=== PATIENT | female | born 1985 | race Hispanic/Latino ===

== ENCOUNTER 2024-12-19 11:52 | Emergency (ER) | payer MEDICAID, SELFPAY ==
[2024-12-19 11:53] VITALS: BP 132/101; PULSE 85; RESP 16; TEMP 36.8; O2SAT 100; BMI 27.5
--- NOTE | 2024-12-19 12:04 | EX.ED.DYSGE1 ---
HPI <BRENDA Lara - Last Filed: 12/19/24 12:41> History of Present Illness Chief Complaint: Foreign Body Narrative Narrative: 39-year-old female put a tampon in last night and forgot it was in and then had sexual intercourse and this morning was unable to remove it. She has no abdominal or pelvic discomfort or discharge. PFSH <BRENDA Lara - Last Filed: 12/19/24 12:41> PFSH Medical History no medical history Allergy/AdvReac Type Severity Reaction Status Date / Time No Known Allergies Allergy Verified 12/19/24 11:53 Family History no significant family his Surgical History no surgical history Social History Smoking Status: Never smoker ROS <BRENDA Lara - Last Filed: 12/19/24 12:41> ROS ED ROS Narrative Constitutional: Negative for fever, chills, malaise. GI: Negative for abdominal pain, nausea, vomiting : Negative for dysuria. EXAM <BRENDA Lara - Last Filed: 12/19/24 12:41> Physical Exam Narrative Exam Narrative: CONST: Patient sitting in no acute distress. EYES: Normal inspection. NECK: Normal inspection. RESP: No respiratory distress, CTAB. CVS: Regular rate and rhythm, no murmur, no gallop. : Normal external genitalia, visible tampon in the vaginal vault was removed, no sign of other irritation or discharge. SKIN: Color normal, no rash, warm, dry, intact. EXTREMITIES: Normal appearance, no pedal edema. NEURO: Alert and answering questions appropriately. PSYCH: Normal affect. Const Vital Signs: 12/19/24 11:53 12/19/24 12:31 12/19/24 12:38 Temperature 98.3 F 98.3 F Temperature Source Oral Pulse Rate 85 85 Respiratory Rate 16 16 Respiratory Effort Normal Respiratory Pattern Normal Blood Pressure 132/101 H 132/101 H Blood Pressure Mean 111 111 Pulse Ox 100 100 Oxygen Delivery Method Room Air <Dr. 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 She has no pain or discomfort but is unable to remove it. I performed a pelvic exam and used ring forceps to remove the tampon successfully. She is otherwise asymptomatic and does not require antibiotics or further treatment. I provided an TRANSPORT DRIVER referral if needed and she was discharged in stable condition. <Dr. 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 She has no pain or discomfort but is unable to remove it. I performed a pelvic exam and used ring forceps to remove the tampon successfully. She is otherwise asymptomatic and does not require antibiotics or further treatment. I provided an TRANSPORT DRIVER referral if needed and she was discharged in stable condition. I have personally performed a face to face assessment of the patient and have reviewed the DEMETRIA Note. I performed a substantive portion of the visit including all aspects of the following. My dow findings include: History is patient is a 39-year-old female who inserted a tampon last night but was unable to get it out. She came in for removal. Denies any other complaints. No fever or chills reported. data integrity analyst used for all interactions with patient. On exam patient is well-appearing. She is normal vital signs. Abdomen soft and nontender. On speculum exam there is tampon that is removed using ring forceps by Magda GUTIERREZ. Patient tolerated this well. Given that is only been in for less than 24 hours I do not think she needs antibiotic prophylaxis. Low suspicion for PID or toxic shock syndrome. Given outpatient gynecology follow-up. Given return precautions Other additions or changes: [None] Discharge Plan Triage Chief Complaint: Foreign Body ED Midlevel Provider: Magda Alexander ED Provider: Adamaris Miranda Dx/Rx/DC Orders Clinical Impression: Foreign body in vagina Instructions: ED Foreign Body Vaginal Adult Primary Care Provider: Care Physician,No Primary Referrals: Zehra Hayward DO [Med Staff - Active Staff] - NOT,DEFINED [Non-Staff] - Activity Restrictions/Additional Instructions: The tampon was removed. Follow-up with TRANSPORT DRIVER as needed. Print Language: Panamanian Disposition Disposition: Home, Self Care Discharge Date/Time: 12/19/24 12:59
[2024-12-19 12:38] VITALS: BP 132/101; PULSE 85; RESP 16; TEMP 36.8; O2SAT 100
== END 2024-12-19 12:59 | disposition home or self-care (01) ==
LOC: ED 12:50
PROVIDERS: Emergency Provider Emergency Medicine; Visit Provider Emergency Medicine
DX: T19.2XXA Foreign body in vulva and vagina, initial encounter (principal); W44.8XXA Other foreign body entering into or through a natural orifice, initial encounter
CPT/HCPCS: 99282

== ENCOUNTER 2025-03-19 08:24 | Emergency (ER) | payer MEDICAID, SELFPAY ==
[2025-03-19 08:24] VITALS: BP 96/53; PULSE 67; RESP 16; TEMP 37; O2SAT 100; BMI 28.3
[2025-03-19 08:27] VITALS: BP 106/58; PULSE 70; RESP 12; TEMP 37; O2SAT 98
--- NOTE | 2025-03-19 08:29 | EX.ED.VIS.UR ---
HPI HPI - URI History of Present Illness Chief Complaint: Sore Throat Narrative Narrative: Patient is a 39-year-old female presenting to the emergency department for a cough and sore throat for the past few days. Patient has no significant past medical history. Patient states that her daughter has similar symptoms. Repair Electric Motor Assembler was used for the interaction. She endorses a subjective fever with no chills. Endorses rhinorrhea and congestion. Patient also endorses redness to her left eye. She endorses watery drainage, no purulent drainage. No itching. No visual changes. No eye pain. Denies chest pain, shortness of breath, abdominal pain, nausea, vomiting, diarrhea. Denies any dysuria or hematuria. Denies headache. She has been taking Tylenol and Motrin for symptomatic control. Last took last evening. Her reason for the visit was that she wants to make sure I can go to work on Saturday. ROS ROS ED ROS Narrative see HPI PFSH PFSH Medical History no medical history Allergy/AdvReac Type Severity Reaction Status Date / Time No Known Allergies Allergy Verified 03/19/25 08:24 Family History no significant family his Social History Smoking Status: Never smoker EXAM Physical Exam Narrative Exam Narrative: Vital signs: Reviewed General: Alert and orientedx3. No acute distress HEENT: Head is normocephalic and atraumatic, sinuses nontender, pupils equal round and reactive. Mild conjunctival injection to the left eye. Watery drainage. No purulent drainage. Nares are patent. Oropharynx with mild posterior erythema. No exudate. No asymmetric swelling. Uvula midline. Neck: Supple without lymphadenopathy nontender. Normal active range of motion. No nuchal rigidity. Cardiovascular: Regular rate and rhythm, no murmurs. No rubs or gallops. Normal S1 and S2 Respiratory: Clear to auscultation bilaterally. No wheezes, rales, rhonchi Abdominal: Soft and nontender. Normal bowel sounds. No guarding or rebound. Nonsurgical abdomen Extremities: No tenderness. No bruising. Normal range of motion. Normal sensation. Skin: No rash or redness. Neurological: Cranial nerves II through XII are grossly intact. Normal strength and sensation. Normal cerebellar function The rest of the physical exam is unremarkable Const Vital Signs: 03/19/25 08:24 03/19/25 08:27 03/19/25 09:23 Temperature 98.6 F 98.6 F Temperature Source Oral Oral Pulse Rate 67 70 70 Respiratory Rate 16 12 12 Blood Pressure 96/53 L 106/58 L 105/69 Blood Pressure Mean 67 74 81 Pulse Ox 100 98 98 Oxygen Delivery Method Room Air Room Air Room Air 03/19/25 10:46 Temperature 98.5 F Temperature Source Pulse Rate 72 Respiratory Rate 12 Blood Pressure 110/56 L Blood Pressure Mean 74 Pulse Ox 99 Oxygen Delivery Method MDM MDM MDM Narrative Medical decision making narrative: Patient is a 39-year-old female presenting to the emergency department for URI symptoms. Patient was seen and examined. Vitals are stable. Patient resting in chair comfortably no acute distress. History and physical exam consistent with a URI. No evidence of RPA or MANAGER TECHNICAL. No exudate noted. Offered a viral swab and patient would like this done. Given IM Toradol as well for symptomatic control. She was educated on supportive care for her viral syndrome. Viral swab negative. Patient with only 3 days of symptoms. Likely viral in nature. She was advised that if she has symptoms for more than 10 days she needs to follow-up with her primary care doctor for further evaluation. In terms of her viral conjunctivitis. She was recommended to complete supportive care and use warm compresses as needed. There is no purulent discharge to be concerned about a bacterial cause of conjunctivitis. No itching or crusting consistent with pink eye. Patient was updated on the likely diagnosis. All questions answered. Patient discharged from the Emergency Department. I do not feel that the patient's evaluation reveals any acute reason for admission at this time. I instructed them to either follow-up with their primary care physician or promptly return to the Emergency Department for reevaluation should symptoms worsen or new symptoms develop. I explained what symptoms would indicate the need to return to the emergency department. Shared decision making was used. The patient voiced understanding of the treatment plan and is agreeable with it. Clinical impression Viral syndrome with pharyngitis History & Record Review Discussion w/independent historian: Patient Discharge Plan Triage Chief Complaint: Sore Throat ED Provider: Nikky Perez Dx/Rx/DC Orders Clinical Impression: Acute viral syndrome Instructions: ED Viral Syndrome (Adult) Stand Alone Forms: ED Work / School Excuse Primary Care Provider: Care Physician,No Primary Referrals: Montse Krishnamurthy MD [Med Staff - Didactic Program In Dietetics Director, Internal Medicine] - As soon as possible Care Physician,No Primary [Primary Care Provider, Medical] Activity Restrictions/Additional Instructions: You can take Tylenol and Motrin at home for symptomatic control. You can try throat lozenges, honey with tea for your sore throat. If you do not have improvement in symptoms in about 10 days you should follow-up with your primary care doctor for reevaluation. Your evaluation in the Emergency Department did not reveal any acute reason for admission. However, I want to emphasize that you may be early in the course of a disease process or illness even if it is not present. For this reason you should follow-up within 24 hours for reevaluation with either your primary care physician or if necessary back here in the Emergency Department. You should return to the Emergency Department immediately if your symptoms worsen or new symptoms develop. Print Language: German Disposition Disposition: Home, Self Care Discharge Date/Time: 03/19/25 10:47
[2025-03-19] MEDS: Ketorolac 30 MG/ML Syringe IM (09:16)
[2025-03-19 09:23] VITALS: BP 105/69; PULSE 70; RESP 12; O2SAT 98
[2025-03-19 10:46] VITALS: BP 110/56; PULSE 72; RESP 12; TEMP 36.9; O2SAT 99
== END 2025-03-19 10:47 | disposition home or self-care (01) ==
PROVIDERS: Emergency Provider Student in an Organized Health Care Education/Training Program; Visit Provider Student in an Organized Health Care Education/Training Program
DX: B34.9 Viral infection, unspecified (principal); J02.9 Acute pharyngitis, unspecified; R50.9 Fever, unspecified
CPT/HCPCS: 87631; 96372; 99282